=== PATIENT | male | born 1985 | race African-American/Black ===

== ENCOUNTER 2019-07-28 23:49 | Emergency (ER) | payer BC, MEDICAID ==
[~2019-07-28] VITALS: Ht 170.2 cm; Wt 68.0 kg
[2019-07-28 23:55] VITALS: BP_SYST 109
[2019-07-29] MEDS: ACETAMINOPHEN 325 MG TABLET PO ONE (02:03)
[2019-07-29] MEDS: BACITRACIN ZINC 15 GM TOPICAL OINTMENT TP ONE (02:04)
[2019-07-29] MEDS: BACITRACIN 1 GM OINT TP ONE (02:04)
[2019-07-29 02:14] VITALS: BP_SYST 112
== END 2019-07-29 02:14 ==
LOC: SED 23:49
DX: S80.211A Abrasion, right knee, initial encounter (principal); S80.812A Abrasion, left lower leg, initial encounter; S90.415A Abrasion, left lesser toe(s), initial encounter; W19.XXXA Unspecified fall, initial encounter; Y93.89 Activity, other specified; Y92.89 Other specified places as the place of occurrence of the external cause; Y99.8 Other external cause status
CPT/HCPCS: 99283